=== PATIENT | female | born 1940 | race Caucasian/White ===

== ENCOUNTER 2022-12-31 16:15 | Inpatient (IN) | payer MEDICARE ==
[~2022-12-31] VITALS: Ht 167.6 cm; Wt 65.0 kg
[2022-12-31 17:33] LABS: BASOPHILS # (AUTO) 0.1 X10'3 (0-0.2); EOSINOPHILS # (AUTO) 0.2 X10'3 (0-0.9); EOSINOPHILS % (AUTO) 2.3 % (0-6); HEMATOCRIT 42.7 % (35.0-45.0); HEMOGLOBIN 14.1 g/dl (12.0-16.0); LYMPHOCYTES % (AUTO) 21.3 % (21-51); MEAN CORPUSCULAR HEMOGLOBIN 29.4 PG (27.0-31.0); MEAN CORPUSCULAR VOLUME 89.2 FL (78-98); MEAN PLATELET VOLUME 8.2 FL (7.4-10.4); MONOCYTES # (AUTO) 0.9 X10'3 (0-0.9); MONOCYTES % (AUTO) 10.2 % (2-12); NEUTROPHILS % (AUTO) 65.2 % (42-75); PLATELET COUNT 264 X10'3 (140-440); RED BLOOD COUNT 4.79 X10'6 (4.20-5.60); RED CELL DISTRIBUTION WIDTH 15.4 % (11.5-14.5); WHITE BLOOD COUNT 9.2 X10'3 (4.5-11.0)
[2022-12-31 17:51] LABS: ALANINE AMINOTRANSFERASE 26 U/L (12-78); ALBUMIN 3.9 G/DL (3.4-5.0); ALBUMIN/GLOBULIN RATIO 1.2 (1.1-1.5); ALKALINE PHOSPHATASE 67 IU/L (46-116); ANION GAP 7 (8-16); ASPARTATE AMINO TRANSFERASE 22 U/L (10-37); BILIRUBIN,TOTAL 0.6 MG/DL (0.1-1.0); BLOOD UREA NITROGEN 35 MG/DL (7-18); BUN/CREATININE RATIO 35.7 (10.0-20.0); CALCIUM 10.4 MG/DL (8.5-10.1); CHLORIDE 104 MMOL/L (99-107); CREATININE 0.98 MG/DL (0.40-0.90); GLUCOSE 93 MG/DL (70-104); POTASSIUM 3.6 MMOL/L (3.5-5.1); SODIUM 138 MMOL/L (135-145); TOTAL CARBON DIOXIDE 27.3 MMOL/L (24-32); TOTAL PROTEIN 7.2 G/DL (6.4-8.2); eCRCL 43 ML/MIN; eGFR 55 ML/MIN
--- NOTE | 2022-12-31 19:19 | NUR ---
DR. CARLOS NOTIFIED OF PTS NIH SCORE OF 8. NO MD HAS SIGNED UP FOR PT.
[2022-12-31 19:39] LABS: BILIRUBIN,URINE NEGATIVE (Neg); CLARITY,URINE SLIGHTLY CLOUDY (Clear); COLOR,URINE YELLOW (Yellow); GLUCOSE, URINE NEGATIVE (Neg); KETONES,URINE NEGATIVE (Neg); LEUKOCYTE ESTERASE ,URINE TRACE (Neg); NITRITES, URINE NEGATIVE (Neg); OCCULT BLOOD,URINE NEGATIVE (Neg); PH,URINE 5.5 (4.8-8.0); PROTEIN,URINE NEGATIVE (Neg); UROBILINOGEN,URINE 0.2 E.U/dL (0.2-1.0)
[2022-12-31 19:49] LABS: UA COLLECTION TYPE CLN CATCH MIDSTREAM
[2022-12-31 19:50] LABS: BACTERIA,URINE 1+ /HPF (Neg); MUCUS STRANDS FEW /LPF (Neg); RBC,URINE 0-2 /HPF (0-2); SQUAMOUS EPITHELIAL CELL,UR FEW /LPF (FEW); TRANSITIONAL EPI CELLS,URINE FEW /HPF; WBC CLUMPS,URINE FEW /HPF (NEGATIVE)
[2022-12-31] MEDS ORDERED: CefTRIAXone 2gm/D5W 50ml BAG 50 ML IV ONE (20:20)
[2022-12-31] MEDS ORDERED: normal saline 1000ML IV soln IVB ONE (20:20)
[2022-12-31] MEDS ORDERED: iohexol 300mg/ml 100ml inj. ONE (20:34)
--- NOTE | 2022-12-31 22:18 | NUR ---
PLACED A WICK ON PT REQUESTED BY FAMILY.
[2022-12-31] MEDS ORDERED: haloperidol lactate 5mg/ml inj IM ONE (23:40)
[2022-12-31] MEDS ORDERED: phenazopyridine 100mg tablet PO ONE (23:40)
--- NOTE | 2023-01-01 00:18 | NUR ---
PT IS INCREASINGLY AGGITATED AND HAVE A DIFFICULT TIME EXPRESSING NEEDS. PT HAS TAKEN OFF THE GOWN AND IS REFUSING TO PUT IT BACK ON BUT SHE IS COVERED WITH BLANKETS. PT IS CONTINUOSLY PULLING AT LINES. MD CARLOS AND CHAD HAVE BEEN NOTIFIED OF ONGOING BEHAVIORS. PT HAS BEEN GIVEN IM HALDOL ORDERED.
[2023-01-01] MEDS ORDERED: magnesium Cl slow-release 64mg tablet PO PRN (00:35)
[2023-01-01] MEDS ORDERED: magnesium hydroxide 30ml (MOM) UD suspension PO PRN (00:35)
[2023-01-01] MEDS ORDERED: ondansetron/PF 4mg/2ml inj IV PRN (00:35)
[2023-01-01] MEDS ORDERED: mag hydrox/Alum hydrox/simeth 30ml oral suspension PO PRN (00:35)
[2023-01-01] MEDS ORDERED: potassium Cl 40MEQ/1/2NS 520ml 520 ML IV PRN (00:35)
[2023-01-01] MEDS ORDERED: acetaminophen 325mg tablet PO PRN (00:35)
[2023-01-01] MEDS ORDERED: PERFLUTREN PROTEIN-A MICROSPHR (Optison) 0.22 MG/ML 3ML VIAL IV ONE (00:35)
[2023-01-01] MEDS ORDERED: magnesium 2GM in 50ml NS 50 ML IV PRN (00:35)
[2023-01-01] MEDS ORDERED: magnesium 4gm in 100ml NS 100 ML IV PRN (00:35)
[2023-01-01] MEDS ORDERED: potassium Cl 20 mEq SR tablet PO PRN (00:35)
--- NOTE | 2023-01-01 06:58 | NUR ---
Talked to the patient's and the daughter at bedside regarding the possibility of MRI head to be done but we would need the pacemaker information for this patient to find out if its safe to proceed with MRI. The family said they do not have it with them, they would have to go home to get it or Dr. Gauthier's office also has the pacemaker information.
--- NOTE | 2023-01-01 07:16 | NUR ---
Patient in room ED 15. I have received report from Chantelle and had the opportunity to ask questions and assume patient care.
[2023-01-01 07:48] LABS: EOSINOPHILS # (AUTO) 0.2 X10'3 (0-0.9); HEMOGLOBIN 13.6 g/dl (12.0-16.0); LYMPHOCYTES # (AUTO) 1.7 X10'3 (1.1-4.8); MONOCYTES # (AUTO) 0.9 X10'3 (0-0.9); NEUTROPHILS # (AUTO) 6.2 X10'3 (1.8-7.7); WHITE BLOOD COUNT 9.2 X10'3 (4.5-11.0)
[2023-01-01 07:51] LABS: BASOPHILS # (AUTO) 0.1 X10'3 (0-0.2); BASOPHILS % (AUTO) 1.2 % (0-1); EOSINOPHILS % (AUTO) 2.4 % (0-6); HEMATOCRIT 40.9 % (35.0-45.0); LYMPHOCYTES % (AUTO) 18.6 % (21-51); MEAN CORPUSCULAR HEMOGLOBIN 29.7 PG (27.0-31.0); MEAN CORPUSCULAR HGB CONC 33.1 g/dL (33.0-36.5); MEAN CORPUSCULAR VOLUME 89.5 FL (78-98); MEAN PLATELET VOLUME 7.9 FL (7.4-10.4); MONOCYTES % (AUTO) 10.3 % (2-12); NEUTROPHILS % (AUTO) 67.5 % (42-75); PLATELET COUNT 247 X10'3 (140-440); RED BLOOD COUNT 4.57 X10'6 (4.20-5.60); RED CELL DISTRIBUTION WIDTH 15.2 % (11.5-14.5)
[2023-01-01] MEDS: K and/or MAG REPLACEMENT MC SCH ×2 (08:00→19:47)
[2023-01-01 08:02] LABS: MAGNESIUM 2.1 MG/DL (1.5-2.4); POTASSIUM 3.5 MMOL/L (3.5-5.1)
[2023-01-01 08:11] LABS: ALANINE AMINOTRANSFERASE 25 U/L (12-78); ALBUMIN 3.5 G/DL (3.4-5.0); ALBUMIN/GLOBULIN RATIO 1.2 (1.1-1.5); ALKALINE PHOSPHATASE 61 IU/L (46-116); ANION GAP 9 (8-16); ASPARTATE AMINO TRANSFERASE 26 U/L (10-37); BILIRUBIN,TOTAL 0.5 MG/DL (0.1-1.0); BLOOD UREA NITROGEN 25 MG/DL (7-18); BUN/CREATININE RATIO 30.1 (10.0-20.0); CALCIUM 9.2 MG/DL (8.5-10.1); CHLORIDE 107 MMOL/L (99-107); CREATININE 0.83 MG/DL (0.40-0.90); GLUCOSE 98 MG/DL (70-104); POTASSIUM 3.5 MMOL/L (3.5-5.1); SODIUM 139 MMOL/L (135-145); TOTAL CARBON DIOXIDE 22.9 MMOL/L (24-32); TOTAL PROTEIN 6.5 G/DL (6.4-8.2); eCRCL 51 ML/MIN; eGFR 66 ML/MIN
[2023-01-01 08:16] LABS: CHOL/HDL RATIO 3.7 (0.00-4.99); CHOLESTEROL 191 MG/DL (0-200); HDL CHOLESTEROL 52 MG/DL (35-60); LDL CHOLESTEROL 106 MG/DL (50-100); TRIGLYCERIDES 214 MG/DL (20-135)
[2023-01-01] MEDS ORDERED: aspirin 81mg tab.chew PO ONE (08:50)
[2023-01-01] MEDS: normal saline 1000ml 1,000 ML IV SCH ×2 (09:03→20:13)
[2023-01-01] MEDS: CefTRIAXone/D5W-Rocephin 1gm 50 ML IV SCH (09:05)
[2023-01-01] MEDS: heparin, porcine 5000 units/ml vial SQ SCH ×2 (09:06→20:05)
[2023-01-01 09:28] LABS: HEMOGLOBIN A1C 5.9 % (4.5-6.2)
[2023-01-01 09:39] LABS: THYROID STIMULATING HORMONE 4.33 ulU/ml (0.34-4.50)
[2023-01-01 10:00] VITALS: BP 131/62; PULSE 63; RESP 16; TEMP 98.6; O2SAT 94
[2023-01-01] MEDS: atorvastatin 20mg tablet PO SCH (10:35)
[2023-01-01] MEDS: docusate sod 100mg capsule PO SCH ×2 (10:36→20:00)
[2023-01-01] MEDS ORDERED: [UNRECOGNIZED DRUG - CODE] PO (11:40)
[2023-01-01] MEDS ORDERED: GABA300C PO (11:40)
[2023-01-01] MEDS ORDERED: SERT-434 PO (11:40)
[2023-01-01] MEDS ORDERED: DONE10TA44 PO (11:40)
[2023-01-01] MEDS ORDERED: ATOR20TA66 PO (11:40)
[2023-01-01] MEDS ORDERED: FLO0.1T PO (11:40)
[2023-01-01] MEDS ORDERED: METH-797 PO (11:40)
[2023-01-01] MEDS ORDERED: iohexol 350MG/ML 100ml bottle IV ONE (11:57)
[2023-01-01 14:00] VITALS: BP 161/66; PULSE 60; RESP 18; TEMP 98.4; O2SAT 100
[2023-01-01] MEDS ORDERED: LORazepam 2 mg/ml vial IV ONE (15:00)
[2023-01-01] MEDS ORDERED: haloperidol lactate 5mg/ml inj IM ONE (17:15)
[2023-01-01 20:00] VITALS: RESP 14; O2SAT 96
[2023-01-01 22:00] VITALS: BP 154/70; PULSE 60; RESP 19; TEMP 99.3; O2SAT 95
[2023-01-02 02:40] VITALS: BP 137/67; PULSE 60; RESP 16; TEMP 99; O2SAT 97
[2023-01-02] MEDS: normal saline 1000ml 1,000 ML IV SCH ×3 (03:35→20:57)
--- NOTE | 2023-01-02 05:51 | NUR ---
I agree with CANDY WRAPPING MACHINE OPERATOR physical assessment
[2023-01-02 06:00] VITALS: BP 113/54; PULSE 71; RESP 17; TEMP 99.2; O2SAT 96
--- NOTE | 2023-01-02 06:14 | NUR ---
Problems reprioritized. Patient report given, questions answered & plan of care reviewed with Arleth.
[2023-01-02 06:31] LABS: BASOPHILS # (AUTO) 0.1 X10'3 (0-0.2); BASOPHILS % (AUTO) 1.3 % (0-1); EOSINOPHILS # (AUTO) 0.1 X10'3 (0-0.9); EOSINOPHILS % (AUTO) 1.6 % (0-6); HEMATOCRIT 37.4 % (35.0-45.0); HEMOGLOBIN 12.5 g/dl (12.0-16.0); LYMPHOCYTES # (AUTO) 1.7 X10'3 (1.1-4.8); LYMPHOCYTES % (AUTO) 21.2 % (21-51); MEAN CORPUSCULAR HEMOGLOBIN 29.7 PG (27.0-31.0); MEAN CORPUSCULAR HGB CONC 33.4 g/dL (33.0-36.5); MEAN CORPUSCULAR VOLUME 88.8 FL (78-98); MEAN PLATELET VOLUME 8.3 FL (7.4-10.4); MONOCYTES # (AUTO) 0.9 X10'3 (0-0.9); MONOCYTES % (AUTO) 11.5 % (2-12); NEUTROPHILS # (AUTO) 5.2 X10'3 (1.8-7.7); NEUTROPHILS % (AUTO) 64.4 % (42-75); PLATELET COUNT 231 X10'3 (140-440); RED BLOOD COUNT 4.21 X10'6 (4.20-5.60); RED CELL DISTRIBUTION WIDTH 14.9 % (11.5-14.5)
--- NOTE | 2023-01-02 06:37 | NUR ---
Patient in room ORTHO 4024. I have received report from Chase and had the opportunity to ask questions and assume patient care.
[2023-01-02] MEDS: K and/or MAG REPLACEMENT MC SCH ×2 (06:43→20:00)
[2023-01-02 07:01] LABS: ALANINE AMINOTRANSFERASE 26 U/L (12-78); ALBUMIN 3.5 G/DL (3.4-5.0); ALBUMIN/GLOBULIN RATIO 1.3 (1.1-1.5); ALKALINE PHOSPHATASE 59 IU/L (46-116); ANION GAP 10 (8-16); ASPARTATE AMINO TRANSFERASE 29 U/L (10-37); BILIRUBIN,TOTAL 0.7 MG/DL (0.1-1.0); BLOOD UREA NITROGEN 13 MG/DL (7-18); BUN/CREATININE RATIO 17.1 (10.0-20.0); CALCIUM 8.7 MG/DL (8.5-10.1); CHLORIDE 108 MMOL/L (99-107); CREATININE 0.76 MG/DL (0.40-0.90); GLUCOSE 90 MG/DL (70-104); MAGNESIUM 2.1 MG/DL (1.5-2.4); POTASSIUM 3.1 MMOL/L (3.5-5.1); SODIUM 140 MMOL/L (135-145); TOTAL CARBON DIOXIDE 22.1 MMOL/L (24-32); TOTAL PROTEIN 6.3 G/DL (6.4-8.2); eCRCL 55 ML/MIN; eGFR 73 ML/MIN
[2023-01-02] MEDS: heparin, porcine 5000 units/ml vial SQ SCH ×2 (07:45→20:57)
[2023-01-02] MEDS: aspirin 81mg tab.chew PO SCH (07:45)
[2023-01-02] MEDS: atorvastatin 20mg tablet PO SCH (07:45)
[2023-01-02] MEDS: docusate sod 100mg capsule PO SCH ×2 (07:45→20:00)
[2023-01-02] MEDS: CefTRIAXone/D5W-Rocephin 1gm 50 ML IV SCH (07:45)
[2023-01-02 18:00] VITALS: BP 124/63; PULSE 60; RESP 17; TEMP 98.3; O2SAT 93
--- NOTE | 2023-01-02 18:41 | NUR ---
Patient in room ORTHO 4024. I have received report from SUZETTE Harp and had the opportunity to ask questions and assume patient care.
[2023-01-02] MEDS: gabapentin 300mg capsule PO SCH (20:57)
[2023-01-02 22:00] VITALS: BP 114/58; PULSE 61; RESP 13; TEMP 98; O2SAT 94
[2023-01-02] MEDS ORDERED: normal saline 250ml IV soln 250 ML IV ONE (22:50)
[2023-01-03 01:23] VITALS: RESP 13; RESP 16; O2SAT 94
--- NOTE | 2023-01-03 06:32 | NUR ---
Problems reprioritized. Patient report given, questions answered & plan of care reviewed with SUZETTE Warren.
--- NOTE | 2023-01-03 06:54 | NUR ---
Patient in room ORTHO 4024. I have received report from Alexandra BRADFORD and had the opportunity to ask questions and assume patient care.
[2023-01-03 07:43] LABS: BASOPHILS # (AUTO) 0.1 X10'3 (0-0.2); EOSINOPHILS # (AUTO) 0.3 X10'3 (0-0.9); HEMOGLOBIN 12.8 g/dl (12.0-16.0); MEAN CORPUSCULAR VOLUME 89.2 FL (78-98); MEAN PLATELET VOLUME 8.2 FL (7.4-10.4); MONOCYTES # (AUTO) 0.8 X10'3 (0-0.9); NEUTROPHILS # (AUTO) 4.1 X10'3 (1.8-7.7); WHITE BLOOD COUNT 6.8 X10'3 (4.5-11.0)
[2023-01-03 07:45] LABS: BASOPHILS % (AUTO) 1.8 % (0-1); HEMATOCRIT 38.4 % (35.0-45.0); LYMPHOCYTES # (AUTO) 1.5 X10'3 (1.1-4.8); MEAN CORPUSCULAR HEMOGLOBIN 29.8 PG (27.0-31.0); MEAN CORPUSCULAR HGB CONC 33.4 g/dL (33.0-36.5); MONOCYTES % (AUTO) 11.9 % (2-12); NEUTROPHILS % (AUTO) 60.3 % (42-75); PLATELET COUNT 250 X10'3 (140-440); RED CELL DISTRIBUTION WIDTH 14.7 % (11.5-14.5)
[2023-01-03] MEDS: K and/or MAG REPLACEMENT MC SCH ×2 (08:00→20:45)
[2023-01-03] MEDS: fludrocortisone acetate 0.1mg tablet PO SCH (08:00)
[2023-01-03] MEDS: docusate sod 100mg capsule PO SCH ×2 (08:00→20:39)
[2023-01-03] MEDS: gabapentin 300mg capsule PO SCH ×3 (08:00→20:39)
[2023-01-03] MEDS ORDERED: atorvastatin 20mg tablet PO SCH (08:00)
[2023-01-03] MEDS: sertraline 50mg tablet PO SCH (08:00)
[2023-01-03 08:01] LABS: ALANINE AMINOTRANSFERASE 23 U/L (12-78); ALBUMIN 3.3 G/DL (3.4-5.0); ALBUMIN/GLOBULIN RATIO 1.1 (1.1-1.5); ALKALINE PHOSPHATASE 57 IU/L (46-116); ANION GAP 10 (8-16); ASPARTATE AMINO TRANSFERASE 27 U/L (10-37); BILIRUBIN,TOTAL 0.7 MG/DL (0.1-1.0); BLOOD UREA NITROGEN 8 MG/DL (7-18); BUN/CREATININE RATIO 11.1 (10.0-20.0); CALCIUM 8.5 MG/DL (8.5-10.1); CHLORIDE 111 MMOL/L (99-107); CREATININE 0.72 MG/DL (0.40-0.90); GLUCOSE 85 MG/DL (70-104); MAGNESIUM 2.1 MG/DL (1.5-2.4); POTASSIUM 3.2 MMOL/L (3.5-5.1); SODIUM 142 MMOL/L (135-145); TOTAL CARBON DIOXIDE 21.3 MMOL/L (24-32); TOTAL PROTEIN 6.2 G/DL (6.4-8.2); eCRCL 58 ML/MIN; eGFR 78 ML/MIN
[2023-01-03 08:37] LABS: ELLIPTOCYTES 1+; PLATELET ESTIMATE NORMAL
[2023-01-03 08:38] LABS: BURR CELLS FEW; SCHISTOCYTES FEW
[2023-01-03] MEDS: CefTRIAXone/D5W-Rocephin 1gm 50 ML IV SCH (10:09)
[2023-01-03] MEDS: atorvastatin 20mg tablet PO SCH (10:10)
[2023-01-03] MEDS: aspirin 81mg tab.chew PO SCH (10:11)
[2023-01-03] MEDS: donepezil 5mg tablet PO SCH (10:13)
[2023-01-03] MEDS: potassium Cl 20 mEq SR tablet PO PRN ×3 (10:14→20:39)
[2023-01-03] MEDS: heparin, porcine 5000 units/ml vial SQ SCH ×2 (10:16→20:39)
[2023-01-03 11:51] VITALS: BP 136/72; PULSE 61; RESP 13; TEMP 97.8; O2SAT 96
[2023-01-03 18:00] VITALS: BP 159/68; PULSE 66; RESP 16; TEMP 98.5; O2SAT 100
--- NOTE | 2023-01-03 18:41 | NUR ---
Received report from Briana BRADFORD. Assumed care. Family at bedside. No s/s of distress at this time.
--- NOTE | 2023-01-03 18:53 | NUR ---
Patient refusing to eat, managed to drink an ensure. Family present most of shift. Report given to Kye BRADFORD
[2023-01-03 20:40] VITALS: RESP 20; O2SAT 94
[2023-01-03 22:00] VITALS: BP 143/78; PULSE 60; RESP 20; TEMP 98.4; O2SAT 94
[2023-01-04] MEDS ORDERED: phenazopyridine 100mg tablet PO PRN (00:25)
[2023-01-04] MEDS: diphenhydrAMINE 25mg capsule PO PRN ×2 (01:03→20:37)
--- NOTE | 2023-01-04 03:08 | NUR ---
ONION TOPPER documentation: I have reviewed and agree with assessment performed and documented by ISSA Flores
[2023-01-04 06:00] VITALS: BP 124/73; PULSE 61; TEMP 97.7; O2SAT 92
--- NOTE | 2023-01-04 06:40 | NUR ---
I have received report from LUPIS Mackey and had the opportunity to ask questions and assume patient care. NO distress at this time.
[2023-01-04 07:01] LABS: ALANINE AMINOTRANSFERASE 26 U/L (12-78); ALBUMIN 3.4 G/DL (3.4-5.0); ALBUMIN/GLOBULIN RATIO 1.1 (1.1-1.5); ALKALINE PHOSPHATASE 61 IU/L (46-116); ANION GAP 10 (8-16); ASPARTATE AMINO TRANSFERASE 28 U/L (10-37); BILIRUBIN,TOTAL 0.6 MG/DL (0.1-1.0); BLOOD UREA NITROGEN 15 MG/DL (7-18); BUN/CREATININE RATIO 21.1 (10.0-20.0); CALCIUM 9.4 MG/DL (8.5-10.1); CHLORIDE 107 MMOL/L (99-107); CREATININE 0.71 MG/DL (0.40-0.90); GLUCOSE 78 MG/DL (70-104); MAGNESIUM 1.9 MG/DL (1.5-2.4); POTASSIUM 3.4 MMOL/L (3.5-5.1); SODIUM 138 MMOL/L (135-145); TOTAL CARBON DIOXIDE 21.3 MMOL/L (24-32); TOTAL PROTEIN 6.4 G/DL (6.4-8.2); eCRCL 59 ML/MIN; eGFR 79 ML/MIN
[2023-01-04 07:07] LABS: BASOPHILS # (AUTO) 0.1 X10'3 (0-0.2); BASOPHILS % (AUTO) 1.4 % (0-1); EOSINOPHILS # (AUTO) 0.3 X10'3 (0-0.9); EOSINOPHILS % (AUTO) 3.7 % (0-6); HEMATOCRIT 38.4 % (35.0-45.0); HEMOGLOBIN 12.6 g/dl (12.0-16.0); LYMPHOCYTES # (AUTO) 1.6 X10'3 (1.1-4.8); LYMPHOCYTES % (AUTO) 19.3 % (21-51); MEAN CORPUSCULAR HEMOGLOBIN 29.4 PG (27.0-31.0); MEAN CORPUSCULAR VOLUME 89.1 FL (78-98); MEAN PLATELET VOLUME 8.8 FL (7.4-10.4); MONOCYTES # (AUTO) 0.9 X10'3 (0-0.9); MONOCYTES % (AUTO) 11.6 % (2-12); NEUTROPHILS # (AUTO) 5.2 X10'3 (1.8-7.7); PLATELET COUNT 246 X10'3 (140-440); RED BLOOD COUNT 4.31 X10'6 (4.20-5.60); RED CELL DISTRIBUTION WIDTH 14.9 % (11.5-14.5); WHITE BLOOD COUNT 8.2 X10'3 (4.5-11.0)
[2023-01-04] MEDS ORDERED: potassium Cl 20 mEq SR tablet PO PRN (07:35)
[2023-01-04] MEDS ORDERED: magnesium Cl slow-release 64mg tablet PO PRN (07:35)
[2023-01-04 08:00] VITALS: RESP 16; O2SAT 96
[2023-01-04] MEDS: fludrocortisone acetate 0.1mg tablet PO SCH (08:00)
[2023-01-04] MEDS: donepezil 5mg tablet PO SCH (08:00)
[2023-01-04] MEDS: K and/or MAG REPLACEMENT MC SCH ×2 (08:00→20:19)
[2023-01-04] MEDS: heparin, porcine 5000 units/ml vial SQ SCH ×2 (08:52→20:45)
[2023-01-04] MEDS: sertraline 50mg tablet PO SCH (08:52)
[2023-01-04] MEDS: aspirin 81mg tab.chew PO SCH (08:52)
[2023-01-04] MEDS: potassium Cl 20 mEq SR tablet PO PRN ×3 (08:52→20:37)
[2023-01-04] MEDS: gabapentin 300mg capsule PO SCH ×3 (08:52→20:38)
[2023-01-04] MEDS: docusate sod 100mg capsule PO SCH ×2 (08:53→20:38)
[2023-01-04] MEDS: atorvastatin 20mg tablet PO SCH (08:53)
[2023-01-04] MEDS: CefTRIAXone/D5W-Rocephin 1gm 50 ML IV SCH (09:50)
[2023-01-04 10:00] VITALS: BP 125/78; PULSE 60; RESP 16; TEMP 97.8; O2SAT 95
[2023-01-04] MEDS ORDERED: haloperidol lactate 5mg/ml inj IM ONE (11:35)
--- NOTE | 2023-01-04 13:16 | NUR ---
Patient received the ordered dose of Haldol IM. MRI transferring pt down to get the imaging performed, family accompanied.
--- NOTE | 2023-01-04 14:14 | NUR ---
Family was inquiring about insurance covering a commode. I paged Case management and got a response stating the insurance does not cover them for this specific request. Relayed to family of recourses on where to find one.
[2023-01-04 18:00] VITALS: BP 129/76; PULSE 60; RESP 12; TEMP 98.4; O2SAT 94
--- NOTE | 2023-01-04 18:00 | NUR ---
I have reviewed and agree with interventions, assessments, and documentation by Cait Hernandez LVN.
--- NOTE | 2023-01-04 18:18 | NUR ---
Problems reprioritized. Patient report given, questions answered & plan of care reviewed with LUPIS RÍOS. No distress at this time.
[2023-01-04 22:00] VITALS: BP 142/78; PULSE 60; RESP 16; TEMP 98.4; O2SAT 96
[2023-01-05 01:00] VITALS: BP 91/59
[2023-01-05 01:05] VITALS: BP 96/56
[2023-01-05] MEDS: normal saline 500ml IV soln 500 ML IV SCH ×2 (01:30→03:30)
--- NOTE | 2023-01-05 01:43 | NUR ---
at approx 0100, pt was up to bedside commode when she suddenly became lethargic and appeared to have left sided weakness; charge nurse was alerted and came to assess patient. 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 left foot had reflexive movement when assessed. BP was obtained 91/59 sitting, BG obtained: 111. Nursing assisted pt back to bed with difficulty. Supine blood pressure 96/56. Charge nurse paged hospitalist receptionist secretary, and spoke with Dr. Leos on phone; MD made aware of pt hx, current VS, medications given this shift, pt signs and symptoms. Order received for fluid bolus of 250ml r/t possible syncopal episode. Pt is currently in bed, resting with eyes closed, bolus started. Will continue to monitor
--- NOTE | 2023-01-05 02:59 | NUR ---
Agree with Meek Leo Physical assessment.
--- NOTE | 2023-01-05 03:00 | NUR ---
Bolus completed. BP 116/64, HR 68. Pt is resting with eyes closed, snoring heavily, daughter at bedside
[2023-01-05 03:24] VITALS: BP 116/64
[2023-01-05 06:00] VITALS: BP 118/66; PULSE 60; RESP 18; TEMP 98.5; O2SAT 93
[2023-01-05 06:09] LABS: BASOPHILS # (AUTO) 0.1 X10'3 (0-0.2); BASOPHILS % (AUTO) 1.1 % (0-1); EOSINOPHILS # (AUTO) 0.2 X10'3 (0-0.9); EOSINOPHILS % (AUTO) 2.1 % (0-6); HEMATOCRIT 40.2 % (35.0-45.0); HEMOGLOBIN 13.4 g/dl (12.0-16.0); LYMPHOCYTES # (AUTO) 1.5 X10'3 (1.1-4.8); LYMPHOCYTES % (AUTO) 14.4 % (21-51); MEAN CORPUSCULAR HEMOGLOBIN 29.8 PG (27.0-31.0); MEAN CORPUSCULAR HGB CONC 33.4 g/dL (33.0-36.5); MEAN CORPUSCULAR VOLUME 89.3 FL (78-98); MEAN PLATELET VOLUME 8.3 FL (7.4-10.4); MONOCYTES % (AUTO) 9.2 % (2-12); NEUTROPHILS # (AUTO) 7.8 X10'3 (1.8-7.7); NEUTROPHILS % (AUTO) 73.2 % (42-75); PLATELET COUNT 252 X10'3 (140-440); RED CELL DISTRIBUTION WIDTH 14.8 % (11.5-14.5); WHITE BLOOD COUNT 10.6 X10'3 (4.5-11.0)
--- NOTE | 2023-01-05 06:20 | NUR ---
Report to Julia BRADFORD
[2023-01-05 06:27] LABS: ALANINE AMINOTRANSFERASE 20 U/L (12-78); ALBUMIN 3.5 G/DL (3.4-5.0); ALBUMIN/GLOBULIN RATIO 1.1 (1.1-1.5); ALKALINE PHOSPHATASE 63 IU/L (46-116); ANION GAP 11 (8-16); ASPARTATE AMINO TRANSFERASE 24 U/L (10-37); BILIRUBIN,TOTAL 0.6 MG/DL (0.1-1.0); BLOOD UREA NITROGEN 18 MG/DL (7-18); BUN/CREATININE RATIO 21.7 (10.0-20.0); CALCIUM 9.4 MG/DL (8.5-10.1); CHLORIDE 106 MMOL/L (99-107); CREATININE 0.83 MG/DL (0.40-0.90); GLUCOSE 83 MG/DL (70-104); POTASSIUM 4.3 MMOL/L (3.5-5.1); SODIUM 136 MMOL/L (135-145); TOTAL CARBON DIOXIDE 19.4 MMOL/L (24-32); TOTAL PROTEIN 6.6 G/DL (6.4-8.2); eCRCL 51 ML/MIN; eGFR 66 ML/MIN
[2023-01-05] MEDS: K and/or MAG REPLACEMENT MC SCH (08:00)
[2023-01-05 08:50] VITALS: RESP 18
[2023-01-05] MEDS: CefTRIAXone/D5W-Rocephin 1gm 50 ML IV SCH (09:00)
[2023-01-05] MEDS: donepezil 5mg tablet PO SCH (09:01)
[2023-01-05] MEDS: sertraline 50mg tablet PO SCH (09:07)
[2023-01-05] MEDS: aspirin 81mg tab.chew PO SCH (09:08)
[2023-01-05] MEDS: gabapentin 300mg capsule PO SCH ×2 (09:09→14:03)
[2023-01-05] MEDS: atorvastatin 20mg tablet PO SCH (09:11)
[2023-01-05] MEDS: docusate sod 100mg capsule PO SCH (09:11)
[2023-01-05] MEDS: heparin, porcine 5000 units/ml vial SQ SCH (09:20)
[2023-01-05] MEDS: fludrocortisone acetate 0.1mg tablet PO SCH (09:39)
[2023-01-05 10:00] VITALS: BP 121/73; PULSE 64; RESP 16; TEMP 98.6; O2SAT 93
[2023-01-05] MEDS ORDERED: ATOR20TA66 PO (11:41)
[2023-01-05] MEDS ORDERED: ASPI81TA53 PO (11:41)
[2023-01-05] MEDS ORDERED: LACT1CAP26 PO (11:41)
== END 2023-01-05 14:19 | disposition home health service (06) | DRG 689 ==
LOC: ER 16:16 → ED HOLD 01-01 00:39 → EDBEDREQ 01-01 04:02 → ORTHO 4S 01-01 07:55
PROVIDERS: ADMIT Internal Medicine; ATTEND Family Medicine
PROC: B3251ZZ Computerized Tomography (CT Scan) of Bilateral Common Carotid Arteries using Low Osmolar Contrast (ICD-10-PCS; principal; 2023-01-01)
PROC: B32G1ZZ Computerized Tomography (CT Scan) of Bilateral Vertebral Arteries using Low Osmolar Contrast (ICD-10-PCS; 2023-01-01)
PROC: B32R1ZZ Computerized Tomography (CT Scan) of Intracranial Arteries using Low Osmolar Contrast (ICD-10-PCS; 2023-01-01)
PROC: B3281ZZ Computerized Tomography (CT Scan) of Bilateral Internal Carotid Arteries using Low Osmolar Contrast (ICD-10-PCS; 2023-01-01)
DX: N39.0 Urinary tract infection, site not specified (principal); G93.41 Metabolic encephalopathy; R47.01 Aphasia; E87.6 Hypokalemia; F03.90 Unspecified dementia, unspecified severity, without behavioral disturbance, psychotic disturbance, mood disturbance, and anxiety; F17.200 Nicotine dependence, unspecified, uncomplicated; Z66 Do not resuscitate; Z88.0 Allergy status to penicillin; Z95.0 Presence of cardiac pacemaker
CPT/HCPCS: 36415; 70450; 70496; 70498; 70551; 71045; 74177; 80053; 80061; 81001; 82948; 83036; 83605; 83735; 84132; 84145; 84443; 84484; 85008; 85025; 87040; 87081; 87088; 93005; 93306; 97110; 97116; 97162; 97530; 99285; A6258; G0378; J0696; J1630; J1644; J2060; J3480; J3490; J7030; J7040; Q0163; Q9967

== ENCOUNTER → 2023-02-22 | Emergency (ER) | payer MEDICARE ==
[~2023-02-22] VITALS: Ht 170.2 cm; Wt 67.0 kg
[~2023-02-22] MED LIST: ASPI81TA53 PO; ATOR20TA66 PO; CefTRIAXone 2gm/D5W 50ml BAG 50 ML IV ONE; DONE10TA44 PO; FLO0.1T PO; GABA300C PO; LACT1CAP26 PO; METH-797 PO; SERT-434 PO; [UNRECOGNIZED DRUG - CODE] PO; hydrALAZINE 20mg/ml inj. IV ONE; levetiracetam inj 1,000 MG in normal saline 100ml IV soln 100 ML IV ONE; normal saline 1000ML IV soln IVB ONE
[2023-02-22 08:26] VITALS: TEMP 98.3
--- NOTE | 2023-02-22 08:36 | NUR ---
MD at bedside during triage, report received from EMS.
--- NOTE | 2023-02-22 09:10 | NUR ---
Family arrives at bedside
[2023-02-22 09:29] LABS: BASOPHILS # (AUTO) 0.1 X10'3 (0-0.2); BASOPHILS % (AUTO) 0.6 % (0-1); EOSINOPHILS # (AUTO) 0.1 X10'3 (0-0.9); EOSINOPHILS % (AUTO) 0.7 % (0-6); HEMATOCRIT 39.8 % (35.0-45.0); HEMOGLOBIN 12.9 g/dl (12.0-16.0); LYMPHOCYTES # (AUTO) 1.5 X10'3 (1.1-4.8); LYMPHOCYTES % (AUTO) 10.1 % (21-51); MEAN CORPUSCULAR HGB CONC 32.5 g/dL (33.0-36.5); MEAN CORPUSCULAR VOLUME 89.3 FL (78-98); MONOCYTES # (AUTO) 1.4 X10'3 (0-0.9); NEUTROPHILS # (AUTO) 11.9 X10'3 (1.8-7.7); NEUTROPHILS % (AUTO) 79.6 % (42-75); PLATELET COUNT 305 X10'3 (140-440); RED BLOOD COUNT 4.46 X10'6 (4.20-5.60); RED CELL DISTRIBUTION WIDTH 15.7 % (11.5-14.5)
[2023-02-22 09:39] LABS: ALANINE AMINOTRANSFERASE 48 U/L (12-78); ALBUMIN 3.7 G/DL (3.4-5.0); ALBUMIN/GLOBULIN RATIO 1.1 (1.1-1.5); ALKALINE PHOSPHATASE 89 IU/L (46-116); ANION GAP 5 (8-16); BILIRUBIN,TOTAL 0.5 MG/DL (0.1-1.0); BLOOD UREA NITROGEN 18 MG/DL (7-18); CALCIUM 9.2 MG/DL (8.5-10.1); CHLORIDE 105 MMOL/L (99-107); GLUCOSE 119 MG/DL (70-104); POTASSIUM 3.7 MMOL/L (3.5-5.1); SODIUM 139 MMOL/L (135-145); TOTAL CARBON DIOXIDE 28.7 MMOL/L (24-32); TOTAL PROTEIN 7.1 G/DL (6.4-8.2); eCRCL 48 ML/MIN; eGFR 60 ML/MIN
[2023-02-22 09:59] LABS: ASPARTATE AMINO TRANSFERASE 24 U/L (10-37)
[2023-02-22 10:24] LABS: BILIRUBIN,URINE NEGATIVE (Neg); CLARITY,URINE CLEAR (Clear); COLOR,URINE YELLOW (Yellow); GLUCOSE, URINE NEGATIVE (Neg); KETONES,URINE NEGATIVE (Neg); LEUKOCYTE ESTERASE ,URINE NEGATIVE (Neg); NITRITES, URINE NEGATIVE (Neg); OCCULT BLOOD,URINE NEGATIVE (Neg); PH,URINE 7.5 (4.8-8.0); PROTEIN,URINE NEGATIVE (Neg); UROBILINOGEN,URINE 0.2 E.U/dL (0.2-1.0)
[2023-02-22 10:28] LABS: UA COLLECTION TYPE STRAIGHT CATH
--- NOTE | 2023-02-22 10:40 | NUR ---
Pt drowsy, easily arousable. Follows commands when aroused. Family at bedside.
--- NOTE | 2023-02-22 11:03 | NUR ---
Spoke with MD RADHA to order CT scan and follow sepsis work up after WBC return of 15.0.
[2023-02-22 11:29] LABS: LACTIC SEPSIS 1.8 MMOL/L (0.4-2.0)
--- NOTE | 2023-02-22 12:33 | NUR ---
Bette stroke RN at bedside with
[2023-02-22 13:04] VITALS: BP 148/69; PULSE 60; RESP 14; O2SAT 95
--- NOTE | 2023-02-22 13:07 | NUR ---
DR. HOUSER SPOKE WITH FAMILY ABOUT TRANSFER TO [facility].
[2023-02-22 13:08] LABS: APTT 21 SECONDS (22-32); PROTHROMBIN TIME 10.6 SECONDS (9.0-12.0)
--- NOTE | 2023-02-22 13:30 | NUR ---
Report called to SUZETTE Park.
== END | disposition home or self-care (01) ==
LOC: ER 08:24
DX: F03.90 Unspecified dementia, unspecified severity, without behavioral disturbance, psychotic disturbance, mood disturbance, and anxiety (principal); Z88.0 Allergy status to penicillin; Z79.899 Other long term (current) drug therapy; Z79.82 Long term (current) use of aspirin
CPT/HCPCS: 36415; 70450; 80053; 81003; 82140; 83605; 85025; 85610; 85730; 87040; 93005; 96365; 96375; 99291; J0696; J1953; J3490; J7030; 99285